=== PATIENT | male | born 1955 | race Caucasian/White ===

== ENCOUNTER → 2016-08-10 | Outpatient (CLI) | payer BC ==
[~2016-08-10] MED LIST: ASPI81TA28 PO; ATOR-54 PO; BIMA0.01 OPB; BROM0.07 OPR; DORZ2SOL17 OPB; LORA10CA2 PO; MULTTAB58 PO; PRED1SUS3 OPR
== END | disposition home or self-care (01) ==
LOC: C.PATHSPEC 17:16
PROVIDERS: ATTEND Urology
DX: R97.20 Elevated prostate specific antigen [PSA] (principal); C61 Malignant neoplasm of prostate

== ENCOUNTER → 2016-09-25 | Outpatient (CLI) | payer BC ==
[~2016-09-25] MED LIST changes: -BROM0.07 OPR; -MULTTAB58 PO; -PRED1SUS3 OPR
[2016-09-25 09:56] LABS: BLOOD UREA NITROGEN 15 mg/dl (7-18); BUN/CREATININE RATIO 14.5 (10-20)
== END | disposition home or self-care (01) ==
LOC: C.LAB1850 07:23
PROVIDERS: ATTEND Urology
DX: C61 Malignant neoplasm of prostate (principal)

== ENCOUNTER → 2016-10-23 | Outpatient (CLI) | payer BC ==
[~2016-10-23] MED LIST changes: +GADAVIST IV PRN
--- NOTE | 2016-11-02 09:22 | DIAGNOSTIC IMAGING REPORT ---
MRI OF THE PROSTATE WITH AND WITHOUT CONTRAST CLINICAL HISTORY: Elevated PSA. Prostate cancer. COMPARISON STUDY: No previous studies for comparison. TECHNIQUE: Utilizing 1.5 Corinne magnet and dedicated coil, multiplanar, multiecho imaging of the prostate was performed pre and postcontrast administration. Injection of 6.5 cc of Gadavist IV was uneventful. Post contrast imaging was performed with dynamic enhancement. Postprocessing was performed on an independent workstation utilizing [employer]. FINDINGS: There is no lymphadenopathy within visualized portions of the pelvis. The right testis is located within the right inguinal canal. No airspace of suspicious marrow replacement are identified within visualized skeletal structures. No abnormality bladder or rectum are identified on this exam. Prostate measures 5 x 4.5 x 4 0.5 cm for an assessment volume of 55.8 cc. There is hypertrophy of the transitional zone consistent with BPH. Note is made of a 1.4 cm T2 hypointense focus within the right lateral base of the gland which demonstrates possible restricted diffusion. This is not hypervascular. This is considered a PI-RADS 4 lesion. In addition, there is a 1.1 cm ill-defined T2 hypointense focus within the left mid aspect of the peripheral zone without restricted diffusion. There is also faint T2 hypointense signal within the right mid aspect of the peripheral zone. Note is made of a 1.5 cm T2 hypointense nodule within the right mid transitional zone without restricted diffusion. IMPRESSION: 1. Several ill-defined T2 hypointense foci within the peripheral zone, as described above, the largest of which is a 1.4 cm focus within the right lateral base of the gland with possible restricted diffusion. In addition, there is ill-defined T2 hypointense signal within the bilateral mid peripheral zone. These lesions are considered PI-RADS 4 and are suspicious for malignancy. 2. 1.1 cm T2 hypointense focus within the right mid transitional zone without restricted diffusion. This is probably benign. 3. Right testis located within the right inguinal canal on this exam. Electronically signed by: Jb Covington M.D. 11/02/2016 9:20 AM Dictated Date/Time: 11/02/2016 8:05 AM
== END | disposition home or self-care (01) ==
LOC: C.MRI 07:27
PROVIDERS: ATTEND Urology
DX: C61 Malignant neoplasm of prostate (principal); R97.20 Elevated prostate specific antigen [PSA]

== ENCOUNTER → 2017-01-06 | Outpatient (CLI) | payer BC ==
[~2017-01-06] MED LIST changes: -GADAVIST IV PRN
== END | disposition home or self-care (01) ==
LOC: C.ONC 10:00
PROVIDERS: ATTEND Physician Assistant Medical
DX: Z51.0 Encounter for antineoplastic radiation therapy (principal); C61 Malignant neoplasm of prostate

== ENCOUNTER 2017-06-17 05:14 | Day surgery (SDC) | payer OTHER ==
[2017-06-01 10:16] VITALS: BMI 23.0
--- NOTE | 2017-06-01 10:51 | PAT Medication Instructions ---
Service Date Jun 01, 2017. Current Home Medication List Aspirin (Aspirin Ec), 81 MG PO QAM Bimatoprost (Lumigan), 1 DROPS OPB HS Dorzolamide Hcl (Trusopt Oph), 1 DROPS OPB BID Ibuprofen (Advil), 200 MG PO PRN Loratadine (Claritin), 10 MG PO QAM Methylprednisolone (Medrol), 4 MG PO UD Rosuvastatin Calcium (Crestor), 10 MG PO QPM Tamsulosin Hcl (Flomax), 0.4 MG PO HS Medication Instructions For Your Scheduled Surgery Contact your surgeon for instructions for: Ibuprofen (Advil), 200 MG PO PRN -Continue as directed: Methylprednisolone (Medrol), 4 MG PO UD - Hold the following medications 10 days prior to surgery per your surgeon's instructions: Aspirin (Aspirin Ec), 81 MG PO QAM - Hold the following medications the morning of surgery: Loratadine (Claritin), 10 MG PO QAM - Take the following medications the morning of surgery with a sip of water: Dorzolamide Hcl (Trusopt Oph), 1 DROPS OPB BID Rosuvastatin Calcium (Crestor), 10 MG PO QAM - Take the following medications as scheduled the night before surgery: Tamsulosin Hcl (Flomax), 0.4 MG PO HS Bimatoprost (Lumigan), 1 DROPS OPB HS Dorzolamide Hcl (Trusopt Oph), 1 DROPS OPB BID If you have any questions please call us at [phone] or [phone] or [phone]
--- NOTE | 2017-06-01 11:34 | DIAGNOSTIC IMAGING REPORT ---
CHEST 2 VIEWS ROUTINE CLINICAL HISTORY: Preoperative chest COMPARISON STUDY: No previous studies for comparison. FINDINGS: The cardiac and mediastinal contours are normal. There is no evidence of focal pulmonary consolidation. There is no evidence of failure. No pleural effusions are visualized.[ There is a right AC joint separation, likely chronic IMPRESSION: No active disease in the chest. Electronically signed by: Arnulfo Jaramillo M.D. 06/01/2017 11:33 AM Dictated Date/Time: 06/01/2017 11:33 AM
[2017-06-01 12:06] LABS: BASO % 0.9 %; BASO ABS # 0.05 K/uL (0-0.2); EOS % 2.5 %; EOS ABS # 0.14 K/uL (0-0.5); HEMATOCRIT 46.2 % (42-52); HEMOGLOBIN 15.1 g/dL (14.0-18.0); IG# 0.01 K/uL (0.00-0.02); LYMPH % 26.2 %; LYMPH ABS # 1.46 K/uL (1.2-3.4); MEAN CELL VOLUME 94.7 fL (80-100); MEAN CORPUSCULAR HEMOGLOBIN 30.9 pg (25-34); MEAN CORPUSCULAR HGB CONC 32.7 g/dl (32-36); MEAN PLATELET VOLUME 11.2 fL (7.4-10.4); MONO % 7.5 %; MONO ABS # 0.42 K/uL (0.11-0.59); NEUT % 62.7 %; NEUT ABS # 3.49 K/uL (1.4-6.5); PLATELET COUNT 177 K/uL (130-400); RED CELL DISTRIBUTION WIDTH SD 48.3 fL (36.4-46.3); WHITE BLOOD COUNT 5.57 K/uL (4.8-10.8)
[2017-06-01 12:44] LABS: CALCIUM 9.2 mg/dl (8.5-10.1); CREATININE 0.95 mg/dl (0.60-1.40); POTASSIUM 4.1 mmol/L (3.5-5.1)
[~2017-06-17] VITALS: Ht 175.3 cm; Wt 68.4 kg
[~2017-06-17 05:14] MED LIST changes: -ATOR-54 PO; +CRS/10 PO; +IBUP-1050 PO; +METH1TAB81 PO; +TAMS0.4C38 PO
[2017-06-17] MEDS ORDERED: CPR/500 PO (05:51)
[2017-06-17 05:56] VITALS: BP 137/63; PULSE 70; TEMP 36.6; O2SAT 99; Ht 175.3 cm; Wt 68.4 kg
[2017-06-17] MEDS ORDERED: GENTAMICIN INJ 120 MG in DEXTROSE 5% 100ML 100 ML IV SCH (06:00)
[2017-06-17] MEDS ORDERED: LACTATED RINGER'S 1000ML 1,000 ML IV SCH (06:00)
[2017-06-17] MEDS ORDERED: CIPROFLOXACIN / D5W 400 MG IV SCH (06:00)
--- NOTE | 2017-06-17 07:04 | History & Physical Bridge Note ---
H&P Re-Evaluation Bridge Note: I have examined the patient, reviewed the History & Physical and in the interval since the performance of the History & Physical I have noted the following changes of clinical significance: No changes noted
[2017-06-17] MEDS ORDERED: FENTANYL CITRATE INJ 50 MCG/1 ML 2 ML VIAL ONE (07:05)
[2017-06-17] MEDS ORDERED: GLYCOPYRROLATE INJ 0.2 MG/ML VIAL ONE ×2 (07:05→09:25)
[2017-06-17] MEDS ORDERED: LIDOCAINE HCL 2% 2 ML VIAL (20MG/ML) ONE (07:05)
[2017-06-17] MEDS ORDERED: DEXAMETHASONE SOD INJ 4 MG/ML VIAL ONE (07:05)
[2017-06-17] MEDS ORDERED: MIDAZOLAM HCL 1 MG/ML 2ML VIAL ONE (07:05)
[2017-06-17] MEDS ORDERED: NEOSTIGMINE METHYLSULFATE 5 MG/5 ML SYR ONE (07:05)
[2017-06-17] MEDS ORDERED: ONDANSETRON INJ 2 MG/ML 2 ML VIAL ONE ×2 (07:05→09:25)
[2017-06-17] MEDS ORDERED: PROPOFOL IV EMULSION 10 MG/ML 20 ML VIAL IV ONE (07:05)
[2017-06-17] MEDS ORDERED: CONRAY 60% 50 ML VIAL ONE (07:15)
[2017-06-17] MEDS ORDERED: BACITRACIN OINT 15 GM TUBE ONE (07:15)
[2017-06-17] MEDS ORDERED: ATROPINE SULFATE 0.1 MG/ML 5ML SYR IV PRN (07:30)
[2017-06-17] MEDS ORDERED: FENTANYL CITRATE INJ 50 MCG/1 ML 2 ML VIAL IV PRN (07:30)
[2017-06-17] MEDS ORDERED: ONDANSETRON INJ 2 MG/ML 2 ML VIAL IV PRN (07:30)
[2017-06-17] MEDS ORDERED: HYDROmorphone INJ 1 MG/ML SYR IV PRN (07:30)
[2017-06-17] MEDS ORDERED: EpHEDrine SULFATE INJ 50 MG/ML AMP IV PRN (07:30)
[2017-06-17] MEDS ORDERED: PHENYLEPHRINE 100MCG/ML 5ML SYR ONE (08:06)
[2017-06-17] MEDS ORDERED: EpHEDrine SULFATE 50MG/5ML SYR ONE ×2 (08:06→09:24)
[2017-06-17] MEDS ORDERED: LARYING-O-JET KIT (LTA) ONE (08:06)
--- NOTE | 2017-06-17 08:48 | [facility] Post Operative Brief Note ---
Immediate Operative Summary Operative Date Jun 17, 2017. Pre-Operative Diagnosis cT2a [place] 3+3 CAP Post-Operative Diagnosis Same Procedure(s) Performed TRUS, brachytherapy of prostate Surgeon Homero Lopez; Ashley Murillo Handkerchief Presser Surgeon(s) Munir Abreu Estimated Blood Loss Min Findings 82 seeds via 25 needles Specimens NA Drains Alvarado Anesthesia GAET Complication(s) None Disposition Recovery Room / PACU
--- NOTE | 2017-06-17 08:50 | Discharge Instructions ---
Discharge Instructions Date of Service Jun 17, 2017. Admission Reason for Admission: Prostate Cancer Discharge Discharge Diagnosis / Problem: Prostate cancer s/p brachyRx Discharge Goals Goal(s): Improve disease control, Therapeutic intervention Activity Recommendations Activity Limitations: as noted below Lifting Limitations: no more than 25 pounds, gradually increase as tolerated Exercise/Sports Limitations: rest today, gradually increase as tolerated (no heavy exercise x 1-2 weeks) May Resume Sexual Activity: after follow-up appointment Shower/Bathe: tomorrow (no tub bath x 3 days) Driving or Machine Use: resume 1 day after discharge . Instructions / Follow-Up Instructions / Follow-Up As scheduled in office Current Hospital Diet Patient's current hospital diet: Discharge Diet Recommended Diet: Regular Diet (good fluid intake) Procedures Procedures Performed: TRUS, brachytherapy of prostate Pending Studies Studies pending at discharge: no Medical Emergencies . Who to Call and When: Medical Emergencies: If at any time you feel your situation is an emergency, please call 911 immediately. . Non-Emergent Contact Non-Emergency issues call your: Urologist Call Non-Emergent contact if: you have a fever, temperature is above 101, your pain is not controlled, your pain is worsening, your pain is unusual for you, your pain is concerning you, wound has increased drainage, you have any medication questions . . "Provider Documentation" section prepared by Trenton Lopez. . VTE Core Measure Inpt VTE Proph given/why not?: SCD's
[2017-06-17] MEDS ORDERED: ROCURONIUM BROMIDE 10 MG/ML 5 ML VIAL IV ONE (09:39)
[2017-06-17] MEDS ORDERED: OXYCODONE/ACETAMINOPHEN 5-325 TAB PO PRN ×2 (10:15)
[2017-06-17] MEDS ORDERED: PHENAZOPYRIDINE HCL 200 MG TAB PO PRN (10:15)
--- NOTE | 2017-06-17 10:21 | [facility] Operative Report ---
Operative Report Operative Date Jun 17, 2017. Pre-Operative Diagnosis cT2a [place] 3+3 Prostate cancer Post-Operative Diagnosis Same Procedure(s) Performed Transrectal guided Volume Brachytherapy of the Prostate Surgeon Homero Lopez; Ashley Murillo Pressroom Supervisor Surgeon(s) Munir Abreu Estimated Blood Loss Min Findings 46.6 cc gland, 82 seeds implanted via 25 needles Specimens None per surgeon Drains Alvarado Anesthesia GAET Complication(s) None Disposition Recovery Room / PACU Indications Patient is a 61-year-old male status post prostate biopsy for a nodular prostate with a PSA of 7.[address] Mauro discovering [place] 3+3 adenocarcinoma of the prostate. After discussion of risks and benefits of various forms of intervention he has decided upon brachytherapy of the prostate to manage his disease. Please see H&P for further details. Intravenous ciprofloxacin and gentamicin provided for antibiotic coverage today. Patient has followed his prep as prescribed. Description of Procedure Patient was properly identified and brought into the operative suite after identification of appropriate consent of the chart. General anesthesia with endotracheal intubation was initiated and patient was prepped and draped in the standard fashion for this procedure. Full timeout procedure was followed. Transrectal ultrasound probe was introduced and the prostate was mapped for the purposes of brachytherapy treatment. A volume of 46.6 mL was calculated. Alvarado catheter was in place with aerated gel within the urethra. Peripheral needle pass was made for a total of 18 needles which were then implanted according to radiation oncology plan. All seeds were visualized entering the prostate under live ultrasound. Fluoroscopy was used as necessary throughout the case for confirmation of location and seed placement. After this was complete 7 internal needles were placed for completion of the radiation oncology treatment plan. Excellent coverage of the prostate and placement of the seeds was noted throughout the case. After this was complete the catheter was placed to gravity drainage. Pressure was held and the perineum for improved hemostasis and bacitracin ointment placed over the needle sites. Anesthesia was reversed and patient was transferred to the recovery room in stable condition. Follow-up care: Patient will be transferred to radiation oncology for imaging prior to trial void. Outpatient follow-up is planned. Complete prescriptions for medications as previously prescribed. Care discussed with the patient's per his preoperative preference. I attest to the content of the Intraoperative Record and any orders documented therein. Any exceptions are noted below.
[2017-06-17 11:03] VITALS: BP 110/55; PULSE 67; TEMP 36.4; O2SAT 100
--- NOTE | 2017-06-17 11:11 | Anesthesiology Progress Note ---
Anesthesia Post Op Note Date & Time Jun 17, 2017 at 11:10 Vital Signs Pain Intensity: 0 Vital Signs Past 12 Hours Date Time Temp Pulse Resp B/P (MAP) Pulse Ox O2 Delivery O2 Flow Rate FiO2 06/17/17 10:55 60 16 112/62 99 Room Air 06/17/17 10:50 36.2 74 16 113/64 99 Room Air 06/17/17 10:40 81 16 126/63 100 Room Air 06/17/17 10:30 81 20 120/62 100 Oxymask 5 06/17/17 10:20 36.5 103 20 133/64 100 Oxymask 10 06/17/17 05:56 36.6 70 16 137/63 (87) 99 Room Air Notes Mental Status: alert / awake / arousable, participated in evaluation Pt Amnestic to Procedure: Yes Nausea / Vomiting: adequately controlled Pain: adequately controlled Airway Patency, RR, SpO2: stable & adequate BP & HR: stable & adequate Hydration State: stable & adequate Anesthetic Complications: no major complications apparent
[2017-06-17 11:33] VITALS: BP 116/56; PULSE 69; TEMP 36.4; O2SAT 100
[2017-06-17 12:03] VITALS: BP 110/54; PULSE 60; TEMP 36.3; O2SAT 100
--- NOTE | 2017-06-17 14:35 | DIAGNOSTIC IMAGING REPORT ---
Study. Prostate seed implant HISTORY: Prostate carcinoma. FINDINGS: AP projections of the low pelvis shows the bladder to be opacified. Multiplicity of radioactive seeds are identified within the prosthetic bed. IMPRESSION: Image intensifier usage for prostate radioactive seed implants Electronically signed by: Agustín Gray M.D. 06/17/2017 2:34 PM Dictated Date/Time: 06/17/2017 2:33 PM
== END 2017-06-17 12:05 | disposition home or self-care (01) ==
LOC: C.ACU 05:14
PROVIDERS: ATTEND Urology
DX: C61 Malignant neoplasm of prostate (principal); E78.5 Hyperlipidemia, unspecified; Z90.89 Acquired absence of other organs; Z79.82 Long term (current) use of aspirin; Z79.899 Other long term (current) drug therapy; Z98.41 Cataract extraction status, right eye; Z98.42 Cataract extraction status, left eye; Z82.49 Family history of ischemic heart disease and other diseases of the circulatory system; Z80.0 Family history of malignant neoplasm of digestive organs

== ENCOUNTER → 2017-07-05 | Outpatient (CLI) | payer OTHER ==
[~2017-07-05] MED LIST changes: +CPR/500 PO
--- NOTE | 2017-07-13 09:45 | Radiation Onc End of Treatmnt ---
End of Treatment Documentation Date Jul 13, 2017. Diagnosis (1) Prostate cancer Location: both lobes of the prostate Histology Subtype: adenocarcinoma Onset Date: 08/31/2016 Stage: ll (B biopsy stage) Permanent Comment: Rising PSA. Pretreatment PSA 7.1 Status post ultrasound-guided biopsies of the prostate 08/10/2016 Adenocarcinoma [place] 3+3 Prostate volume 51.6 Prostate density 0.137 Oncotype DX score of 11 Status post prostate seed implant as monotherapy 06/17/2017. 82 seeds were placed. He received 115 Gy. Last Edited By: Domitila Washington on Jul 13, 2017 09:36 History Mr. Disla is without a family history of prostate cancer. His prostate- specific antigen screening has been intermittent. In 2005 his prostate-specific antigen was 2.04. In 2007 prostate-specific antigen was 2.06 and on the prostate-specific antigen was 3.31. He underwent a a repeat prostate -specific antigen was performed on 10/2015 that was elevated at 7.1. This prompted his PCP Dr. Oliva to recommend referral to Dr. Armen Mauro. The patient was seen on 06/22/2016 his digital rectal exam was abnormal with a biopsy palpable at the left apex. Because of this and the change in prostate-specific antigen he recommended consideration of an ultrasound-guided biopsy. The patient agreed to the ultrasound-guided biopsy and this was scheduled and performed on 08/10/2016. A total of 14 biopsies were taken. The biopsies from the right base and right anterior were benign. The biopsy from the left anterior revealed atypical small acinar proliferation that was suspicious for adenocarcinoma. 2 of 2 biopsies from the left base were positive for adenocarcinoma [place] grade 3+3 involving 25% and 30% of the core tissue samples respectively with no perineural invasion identified. 2 of 2 biopsies from the left mid gland were positive for adenocarcinoma [place] grade 3+3 involving 40% and 20% of the core tissue samples respectively with no perineural invasion identified. One of 2 biopsies from the right mid gland were positive for adenocarcinoma [place] grade 3+3 involving 20% of the core tissue sample with no perineural invasion identified. One of 2 biopsies in the left apex were positive for adenocarcinoma [place] grade 3+3 involving 35% of the core tissue sample with no perineural invasion identified. One of 2 biopsies from the right apex were positive for adenocarcinoma [place] grade 3+3 involving 10% of core tissue sample with no perineural invasion identified area and therefore a total of 7 out of 14 biopsies were positive for an adenocarcinoma [place] grade 3+3. 5 biopsies were positive from the left gland in 2 biopsies were positive from the right gland. Case: [id number]. Patient is estimated ultrasound volume was 51.6 g area his prostate-specific antigen density was calculated at 0.137. Dr. Mauro has ordered an Oncotype DX test. Results of this test are pending. The patient will discuss the surgical treatment options with Dr. Mauro. He was kind enough to ask us to see the patient to discuss the radiation treatment options. His final decision was to be treated with a prostate seed implant. This was carried out on 06/17/2017. He received 115 Gy. Physics Procedure Monotherapy/ Boost Implant Date # of seeds Activity per seed Isotope Dose (cGy) Prostate seed implant Monotherapy 06/17/2017 82 1.94 U Cs-131 [id number] Do documented final doses agree with prescribed doses? Yes If not, explain: Is patients chart complete and accurate? Yes Systemic Therapy Chemotherapy not given Hormone suppression not required. Additional Notes He tolerated his treatment well. Following his procedure he return to radiation oncology and had a CT simulation. He has been given a regimen of medications to take postoperatively by urology. We asked him to return to our office in one month. We have given him weekly worksheets to complete to review his AUA score. When he returns in one month we will complete a cancer survivorship care plan. He'll continue follow-up with Dr. Mensah and his primary care provider. He may call our office if he has any questions or concerns in the interim. Pain Management He denied pain before treatment. He was given instructions by urology as well as prescriptions for postoperative discomfort. He didn't require pain management through our office. Copies To Jacob Holland M.D.; Armen Mauro M.D.
--- NOTE | 2017-07-13 09:47 | Rad Onc Survivorship Care Plan ---
Treatment Summary Health Care Providers Primary Care Provider: Dr. Holland Surgeon: Dr. Trenton Lopez Radiation Oncologist: Dr. Narciso Murillo Medical Oncologist: not applicable Additional Providers: Dr. Mauro Diagnosis (1) Prostate cancer Location: both lobes of the prostate Histology Subtype: adenocarcinoma Onset Date: 08/31/2016 Stage: ll (B biopsy stage) Permanent Comment: Rising PSA. Pretreatment PSA 7.1 Status post ultrasound-guided biopsies of the prostate 08/10/2016 Adenocarcinoma [place] 3+3 Prostate volume 51.6 Prostate density 0.137 Oncotype DX score of 11 Status post prostate seed implant as monotherapy 06/17/2017. 82 seeds were placed. He received 115 Gy. Last Edited By: Domitila Washington on Jul 13, 2017 09:36 Radiation Treatment Radiation: Yes Body Area Treated: prostate End Date (Year): 06/17/2017 Treatment: Procedure Monotherapy/ Boost Implant Date # of seeds Activity per seed Isotope Dose (cGy) Prostate seed implant Monotherapy 06/17/2017 82 1.94 U Cs-131 [id number] Do documented final doses agree with prescribed doses? Yes If not, explain: Is patients chart complete and accurate? Yes Familial Cancer Assessment Genetic/Hereditary Risk Factor: None Genetic Counseling: No Follow-Up Care Plan Ongoing Treatment Ongoing treatment needed: Yes Name / Duration / Side Effects Follow up guidelines per NCCN/ASCO/AUA/CATALINA guidelines and your oncologist and/ or urologist. You should have a PSA drawn every 6 months. Schedule of Clinicial Visits Coordinating Provider & When: Follow up with your radiation oncologist, urologist, and primary care provider. Cancer Surveillance Provider/What/When/How Often: You will follow up with our office in 6 months and then yearly. You should be seen by one physician regarding your prostate cancer every 6 months. General Health Care Please continue to see your primary care provider for all general health care recommended for a person your age, including cancer screening tests. Any symptoms should be brought to the attention of your provider: 1. Anything that represents a brand new symptom; 2. Anything that represents a persistent symptom; 3. Anything you are worried about that might be related to the cancer coming back. Possible Effects Late and/or FCI effects: Following the completion of treatment, your acute side effects from radiation treatment should improve including urinary frequency, urgency, pain with urination, loose bowel movements and fatigue. Late side effects include, but are not limited to, radiation proctitis, radiation cystitis, urinary frequency/urgency, decreased urinary flow, erectile dysfunction, loose bowel movements, femoral neck fracture, bowel obstruction and abdominal adhesions. You are also at risk of developing secondary cancer. Concerns Cancer survivors may experience issues with the areas listed below. If you have any concerns in these or other areas, please speak with your doctors or nurses to find out how you can get help with them. Lifestyle / Behaviors A number of lifestyle / behaviors can affect your ongoing health, including the risk for the cancer coming back or developing another cancer. Discuss these recommendations with your doctor or nurse. : Diet Physical activity Prepared By Your Survivorship Care Plan was prepared by Domitila Washington on 07/13/17. Additional Copies To Jacob Holland M.D.; Armen Mauro M.D.
== END | disposition home or self-care (01) ==
LOC: C.ONC 09:25
PROVIDERS: ATTEND Physician Assistant Medical
DX: Z51.0 Encounter for antineoplastic radiation therapy (principal); C61 Malignant neoplasm of prostate

== ENCOUNTER → 2017-07-22 | Outpatient (CLI) | payer OTHER ==
[~2017-07-22] MED LIST changes: +ALFU10TA2 PO; +AMOX1TAB42 PO
[2017-07-22 13:03] VITALS: BP 115/67; PULSE 66; TEMP 36.4; O2SAT 100
--- NOTE | 2017-07-22 16:17 | Radiation Oncology Follow-Up ---
Radiation Oncology Follow-Up Date of Visit Jul 22, 2017. Reason For Visit 1 month follow-up in cancer survivorship care plan Radiation Completion Date 06/17/17 - Monotherapy Seed Implant Diagnosis (1) Prostate cancer Status: Acute Onset Date: 08/31/2016 Location: Both lobes of the prostate Histology Subtype: Adenocarcinoma Stage: ll (B biopsy stage) Permanent Comment: Rising PSA. Pretreatment PSA 7.1 Status post ultrasound-guided biopsies of the prostate 08/10/2016 Adenocarcinoma [place] 3+3 Prostate volume 51.6 Prostate density 0.137 Oncotype DX score of 11 Status post prostate seed implant as monotherapy 06/17/2017. 82 seeds were placed. He received 115 Gy. Last Edited By: Domitila Washington on Jul 13, 2017 09:36 History of Present Illness Mr. Disla is without a family history of prostate cancer. His prostate- specific antigen screening has been intermittent. In 2005 his prostate-specific antigen was 2.04. In 2007 prostate-specific antigen was 2.06 and on the prostate-specific antigen was 3.31. He underwent a a repeat prostate -specific antigen was performed on 10/2015 that was elevated at 7.1. This prompted his PCP Dr. Oliva to recommend referral to Dr. Armen Mauro. The patient was seen on 06/22/2016 his digital rectal exam was abnormal with a biopsy palpable at the left apex. Because of this and the change in prostate-specific antigen he recommended consideration of an ultrasound-guided biopsy. The patient agreed to the ultrasound-guided biopsy and this was scheduled and performed on 08/10/2016. A total of 14 biopsies were taken. The biopsies from the right base and right anterior were benign. The biopsy from the left anterior revealed atypical small acinar proliferation that was suspicious for adenocarcinoma. 2 of 2 biopsies from the left base were positive for adenocarcinoma [place] grade 3+3 involving 25% and 30% of the core tissue samples respectively with no perineural invasion identified. 2 of 2 biopsies from the left mid gland were positive for adenocarcinoma [place] grade 3+3 involving 40% and 20% of the core tissue samples respectively with no perineural invasion identified. One of 2 biopsies from the right mid gland were positive for adenocarcinoma [place] grade 3+3 involving 20% of the core tissue sample with no perineural invasion identified. One of 2 biopsies in the left apex were positive for adenocarcinoma [place] grade 3+3 involving 35% of the core tissue sample with no perineural invasion identified. One of 2 biopsies from the right apex were positive for adenocarcinoma [place] grade 3+3 involving 10% of core tissue sample with no perineural invasion identified area and therefore a total of 7 out of 14 biopsies were positive for an adenocarcinoma Bac[place] grade 3+3. 5 biopsies were positive from the left gland in 2 biopsies were positive from the right gland. Case: [id number]. Patient is estimated ultrasound volume was 51.6 g area his prostate-specific antigen density was calculated at 0.137. Dr. Mauro has ordered an Oncotype DX test. Results of this test are pending. The patient will discuss the surgical treatment options with Dr. Mauro. He was kind enough to ask us to see the patient to discuss the radiation treatment options. His final decision was to be treated with a prostate seed implant. This was carried out on 06/17/2017. He received 115 Gy. Interim History He has been doing well over the past month. Today gave an AUA score of 6. He brought in weekly score sheets for review. He had an AUA score June 27 of 11. On July 04, 2017 gave a score of 11. On July 11, 2017 he gave a score of 7. On July 18, 2017 he gave a score of 7. He is on Uroxatral he has occasional burning sensation with urination. This can occur at the beginning of urination and at times at the end of urination. The discomfort can be in the bladder area and at times at the end of the penis. He had taken ibuprofen immediately following the implant and then stop the medication. He also intermittently used Pyridium. He has not had difficulty with fatigue. He is continuing to exercise daily. Dr. Mauro had given instructions that he could wean off the alfuzosin in a few weeks. He completed and expanded prostate cancer index composite for clinical practice and gave a score of 0 of 12 and urinary incontinence symptoms. He gives a score of 5 of 12 and urinary irritation symptoms. He gives score 2 of 12 and bowel symptoms. He gave a score 1 of 12 and sexual symptoms. He gave a score 1 of 12 and hormonal vitality symptoms. His total was 9 of 60. Allergies Coded Allergies: Animal Dander (Verified Allergy, Intermediate, Runny Nose, Red Eyes , 06/17) Tuna (Verified Allergy, Intermediate, loses snnse of taste x 24 hrs-gets numb, 06/17/17) NO KNOWN DRUG ALLERGIES (Verified Allergy, Unknown, NONE, 06/17/17) Home Medications Scheduled Alfuzosin Hcl (Uroxatral), 10 MG PO DAILY Amoxicillin & Pot Clavulanate (Amoxicillin/Clavulanate P), 1 TAB PO BID Aspirin (Aspirin Ec), 81 MG PO QAM Bimatoprost (Lumigan), 1 DROPS OPB HS Dorzolamide Hcl (Trusopt Oph), 1 DROPS OPB BID Ibuprofen (Advil), 200 MG PO PRN Loratadine (Claritin), 10 MG PO QAM Rosuvastatin Calcium (Crestor), 10 MG PO QPM Review of Systems Gastrointestinal: Symptoms: WNL Oral: Symptoms: No Problems Respiratory: Symptoms: WNL, Dry Cough Other Respiratory: 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 Physical Exam Vital Signs Date Time Temp Pulse Resp B/P (MAP) Pulse Ox O2 Delivery O2 Flow Rate FiO2 07/22/17 13:03 36.4 66 16 115/67 100 Fatigue: None General Appearance: no apparent distress Eyes: normal inspection, EOMI ENT: normal ENT inspection, hearing grossly normal Respiratory/Chest: no respiratory distress, no accessory muscle use, + wheezing Cardiovascular: regular rate, rhythm, no gallop, no murmur Abdomen: non tender, soft Extremities: no pedal edema Neurologic/Psychiatric: no motor/sensory deficits, alert, normal mood/affect Pain Management Patient Reports Pain: No Pain Management Plan He had dysuria and did not give this a pain level. Laboratory Laboratory Results: not applicable Pathology Pathology Results: not applicable Imaging Imaging Studies: not applicable Assessment & Plan Plan: Patient will continue follow-up with Dr. Mauro. He is going to have a recheck PSA and visit in 3 months. We discussed use of ibuprofen to help with the dysuria and nocturia. He is going to take 400 mg twice daily with food for the next week. He does have Pyridium available. He could also use over-the- counter Azo. I recommended he take 1 Azo at bedtime. This may also help to decrease nocturia. We asked him to return to our office in 6 months. He may call if he has any questions or concerns in the interim. Today we completed the cancer survivorship care plan. A copy of the document was given to the patient. He was given a survivorship booklet. He also has resolving bronchitis and is on Augmentin. His respiratory symptoms are improving. Total Time In Follow-Up I spent 20 minutes speaking to the patient in performing examination. I spent 20 minutes reviewing information, preparing the survivorship document, and completing this note. Copy To Jacob Holland M.D.; Armen Mauro M.D.
== END | disposition home or self-care (01) ==
LOC: C.ONC 12:52
PROVIDERS: ATTEND Physician Assistant Medical
DX: Z08 Encounter for follow-up examination after completed treatment for malignant neoplasm (principal); Z92.3 Personal history of irradiation; Z85.46 Personal history of malignant neoplasm of prostate

== ENCOUNTER → 2018-01-12 | Outpatient (CLI) | payer OTHER ==
[~2018-01-12] MED LIST changes: -CPR/500 PO; -DORZ2SOL17 OPB; +DORZ2SOL19 OPB; -METH1TAB81 PO; -TAMS0.4C38 PO
[2018-01-12 14:08] VITALS: BP 130/64; PULSE 74; TEMP 37; O2SAT 99
--- NOTE | 2018-01-12 16:23 | Radiation Oncology Follow-Up ---
Radiation Oncology Follow-Up Date of Visit Jan 12, 2018. Reason For Visit Six-month follow-up Radiation Completion Date seeds implanted 06/17/17 Diagnosis (1) Prostate cancer Status: Acute Onset Date: 08/31/2016 Location: Both lobes of the prostate Histology Subtype: Adenocarcinoma Stage: ll (Biopsy stage) Permanent Comment: Rising PSA. Pretreatment PSA 7.1 Status post ultrasound-guided biopsies of the prostate 08/10/2016 Adenocarcinoma Shock 3+3 Prostate volume 51.6 Prostate density 0.137 Oncotype DX score of 11 Status post prostate seed implant as monotherapy 06/17/2017. 82 seeds were placed. He received 115 Gy. Last Edited By: Domitila Washington on Jul 13, 2017 09:36 History of Present Illness Mr. Disla is without a family history of prostate cancer. His prostate- specific antigen screening has been intermittent. In 2005 his prostate-specific antigen was 2.04. In 2007 prostate-specific antigen was 2.06 and on the prostate-specific antigen was 3.31. He underwent a a repeat prostate -specific antigen was performed on 10/2015 that was elevated at 7.1. This prompted his PCP Dr. Oliva to recommend referral to Dr. Armen Mauro. The patient was seen on 06/22/2016 his digital rectal exam was abnormal with a biopsy palpable at the left apex. Because of this and the change in prostate-specific antigen he recommended consideration of an ultrasound-guided biopsy. The patient agreed to the ultrasound-guided biopsy and this was scheduled and performed on 08/10/2016. A total of 14 biopsies were taken. The biopsies from the right base and right anterior were benign. The biopsy from the left anterior revealed atypical small acinar proliferation that was suspicious for adenocarcinoma. 2 of 2 biopsies from the left base were positive for adenocarcinoma Shock grade 3+3 involving 25% and 30% of the core tissue samples respectively with no perineural invasion identified. 2 of 2 biopsies from the left mid gland were positive for adenocarcinoma [place] grade 3+3 involving 40% and 20% of the core tissue samples respectively with no perineural invasion identified. One of 2 biopsies from the right mid gland were positive for adenocarcinoma [place] grade 3+3 involving 20% of the core tissue sample with no perineural invasion identified. One of 2 biopsies in the left apex were positive for adenocarcinoma [place] grade 3+3 involving 35% of the core tissue sample with no perineural invasion identified. One of 2 biopsies from the right apex were positive for adenocarcinoma [place] grade 3+3 involving 10% of core tissue sample with no perineural invasion identified area and therefore a total of 7 out of 14 biopsies were positive for an adenocarcinoma [place] grade 3+3. 5 biopsies were positive from the left gland in 2 biopsies were positive from the right gland. Case: [id number]. Patient is estimated ultrasound volume was 51.6 g area his prostate-specific antigen density was calculated at 0.137. Dr. Mauro has ordered an Oncotype DX test. Results of this test are pending. The patient will discuss the surgical treatment options with Dr. Mauro. He was kind enough to ask us to see the patient to discuss the radiation treatment options. His final decision was to be treated with a prostate seed implant. This was carried out on 06/17/2017. He received 115 Gy. Interim History He has been doing well from urinary standpoint. His AUA score was 3. This is down from 6 at his last visit. He was able to discontinue Uroxatrol. At his last visit he did have symptoms of discomfort of the bladder that can radiate to the penis. He did not have these complaints today but he does have more frequent loose bowel movements. Bowel movements had been only once per day. Now it is usually twice a day. Occasional urgency of bowel movements. There is been no dysuria. He has not needed to use any Pyridium. He completed and expanded prostate cancer index composite for clinical practice and gave a score of 0 of 12 and urinary incontinence symptoms. He gave a score of 1 of 12 and urinary irritation symptoms. He gave a score of 2 of 12 and bowel symptoms. He gave a score of 4 of 12 and sexual symptoms. He gave a score of 0 12 and hormonal vitality symptoms. His total was 7 of 60. He has had recheck PSAs. He had a PSA October 19, 2017 that was 1.3. His PSA January 05, 2018 was 1.2. He had question the usual timeframe for symptoms to resolve. He did also ask if he would require more frequent colonoscopies since having the cesium seed implant. Allergies Coded Allergies: Animal Dander (Verified Allergy, Intermediate, Runny Nose, Red Eyes , 06/17) Tuna (Verified Allergy, Intermediate, loses snnse of taste x 24 hrs-gets numb, 06/17/17) NO KNOWN DRUG ALLERGIES (Verified Allergy, Unknown, NONE, 06/17/17) Home Medications Scheduled Aspirin (Aspirin Ec), 81 MG PO QAM Bimatoprost (Lumigan), 1 DROPS OPB HS Dorzolamide Hcl (Trusopt Oph), 1 DROPS OPB BID Ibuprofen (Advil), 200 MG PO PRN Loratadine (Claritin), 10 MG PO QAM Rosuvastatin Calcium (Crestor), 10 MG PO QPM Review of Systems Gastrointestinal: Symptoms: WNL Oral: Symptoms: No Problems Other Oral Symptoms: some urgent & frequent formed bowel movements since seed implant Respiratory: Symptoms: WNL 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 He is going to be seeing Dr. Holland and having a full physical examination with rectal examination in 2 weeks. Extremities: no pedal edema Neurologic/Psychiatric: no motor/sensory deficits, alert, normal mood/affect Skin: warm/dry Lymphatic: no adenopathy Pain Management Patient Reports Pain: No Initial Pain Intensity: 0.0 Pain Management Plan He denies pain therefore requires no pain management. Laboratory Laboratory Results: were reviewed Laboratory Comments: Reviewed in the interim history. Pathology Pathology Results: were reviewed, and pertinent findings noted in HPI Imaging Imaging Studies: not applicable Assessment & Plan Plan: Today we discussed the half-life of the cesium. He is quite aware of the 10 day half-life of the cesium implant. 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 We discussed that this is on an individual basis. His symptoms are improving over time. He has continued to take ibuprofen 400 mg twice daily. He takes this for his osteoarthritis of the knees. He feels significantly does help with his post treatment symptoms. I have asked him to use Metamucil daily which would help with the loose bowel movements. I discussed with him that there are no criteria for more frequent colonoscopies due to radiation therapy. He will be seeing Dr. Holland in 2 weeks. He will continue follow-up with Dr. Mauro. His dose fractionation will be reviewed with Dr. Murillo/physics. We asked him to return to our office in 1 year. He may call if he has any questions or concerns in the interim. We did discuss possible use of a Medrol Dosepak or steroids help lessen side effects. He declined a prescription for steroids. We reviewed potential late side effects of radiation proctitis. Total Time In Follow-Up I spent 20 minutes speaking to the patient in performing examination. I spent 15 minutes reviewing information and completing this note. [place] Copy To Jacob Holland M.D.; Armen Mauro M.D.
== END | disposition home or self-care (01) ==
LOC: C.ONC 13:48
PROVIDERS: ATTEND Physician Assistant Medical
DX: Z08 Encounter for follow-up examination after completed treatment for malignant neoplasm (principal); Z92.3 Personal history of irradiation; Z85.46 Personal history of malignant neoplasm of prostate